=== PATIENT | female | born 1985 | race African-American/Black ===

== ENCOUNTER 2017-05-15 06:10 | Observation (INO) | payer MEDICAID ==
[~2017-05-15] VITALS: Ht 152.4 cm; Wt 109.8 kg
[2017-05-15] MEDS ORDERED: PRENATAL COMPLE1 TAB PO (07:10)
[2017-05-15] MEDS ORDERED: GLYBURIDE5 M1 PO (07:10)
[2017-05-15 09:22] VITALS: BP 131/76
[2017-05-15 10:19] VITALS: BMI 47.3
[2017-05-15 19:34] VITALS: BP 132/66
[2017-05-15 20:15] VITALS: BP 132/66; Ht 152.4 cm; Wt 109.8 kg
[2017-05-16 07:38] VITALS: BP 132/75
== END 2017-05-16 18:25 | disposition home or self-care (01) ==
LOC: D.LDO 06:10 → OBSVTIME 18:32 → D.LD 18:32 → D.LDO 19:02 → D.LD 05-16 18:25
DX: O24.424 Gestational diabetes mellitus in childbirth, insulin controlled (principal); Z37.0 Single live birth; O10.912 Unspecified pre-existing hypertension complicating pregnancy, second trimester; O34.12 Maternal care for benign tumor of corpus uteri, second trimester; D25.9 Leiomyoma of uterus, unspecified

== ENCOUNTER → 2017-06-27 12:34 | Outpatient (CLI) | payer MEDICAID ==
[~2017-06-27 12:34] MED LIST: GLYBURIDE5 M1 PO; PRENATAL COMPLE1 TAB PO
== END | disposition home or self-care (01) ==
LOC: D.LDO 12:34
DX: O26.892 Other specified pregnancy related conditions, second trimester (principal); Z3A.24 24 weeks gestation of pregnancy; K59.00 Constipation, unspecified

== ENCOUNTER 2019-07-22 05:12 | Day surgery (SDC) | payer BC ==
[~2019-07-22] VITALS: Ht 149.9 cm; Wt 110.2 kg
--- NOTE | ~2019-07-22 | OP ---
PATIENT NAME: PENNY NGUYEN MEDICAL RECORD: [id number] :83 LOCATION:D.[facility] ADMISSION DATE: SURGEON: VINCE NIETO MD DATE OF OPERATION: 07/22/2019 PREOPERATIVE DIAGNOSES: 1. Morbid obesity. 2. Undesired fertility, request intrauterine device placement. POSTOPERATIVE DIAGNOSES: 1. Morbid obesity. 2. Undesired fertility, request intrauterine device placement. PROCEDURES: 1. Exam under anesthesia. 2. Dilation of cervix. 3. IUD placement. SURGEON: Vince Nieto MD GUTTER HANGER: Rosalio Meléndez. ANESTHESIA: General. FINDINGS: The patient is morbidly obese with a large retractor with sidewalls required to visualize the cervix at the apex. Cervix appears attenuated. Cervix is slightly stenotic and dilated to accommodate placement of IUD. Uterus sounded to approximately 7-8 cm prior to placement. SPECIMENS REMOVED: Not applicable. ESTIMATED BLOOD LOSS: Minimal. FLUIDS: 500 cc lactated Ringer's. URINE OUTPUT: Quantity sufficient void. COMPLICATIONS: None. INDICATIONS: The patient is a 33-year-old female requesting IUD for control. The patient is status post section with her first delivery. The patient is morbidly obese and would be at increased risk due to advancing maternal age and body habitus with . Due to body habitus and limitations in clinic, unable to visualize the cervix and placed IUD. DESCRIPTION OF PROCEDURE: After informed consent was assured, the patient was taken to the operating room, anesthetic was obtained. The patient was placed in the [facility] and prepped and draped. The legs were positioned and the standard operative speculum introduced. Due to the soft tissue obstruction, this was abandoned and a weighted speculum along with Robles retractor was utilized. Again, the cervix was poorly visualized. Using an insulated large Graves speculum with the sidewall retractors, the cervix was eventually visualized, grasped with a single-toothed tenaculum, placed on gentle tension and dilated to accommodate a uterine sound. The sound was passed gently to the fundus approximately 7.5 to 8 cm. Mirena IUD was now inspected. The device was OPERATIVE REPORT [id number] PENNY NGUYEN loaded into its applicator and placed. Strings are cut to approximately 2.5 to 3 cm. The instrument counts correct at the close of this procedure. The patient was awakened and went to the recovery area in stable condition. TRANSINT:[id number] Voice Confirmation ID: [id number] DOCUMENT ID: [id number] VINCE NIETO MD CC: [id number] DICTATION DATE: 08/04/19718 PHARMACEUTICAL REPRESENTATIVE: 08/04/1942 [facility] 07/22/[address] [facility] [address] [id number]
[~2019-07-22 05:12] MED LIST changes: +GLUCOPHAGE500 MG PO; +HYDROCHLOROTH12.5 M1; +PROCARDIA XL60 MG PO
[2019-07-22 05:38] LABS: HEMATOCRIT 38.5 % (36.0-48.0); HEMOGLOBIN 12.4 g/dL (12-16); MCH 27.8 pg (26.0-34.0); MCHC 32.2 g/dL (31.0-37.0); MCV 86.3 fL (80.0-100.0); MEAN PLATELET VOLUME 10.1 fL (7.4-10.4); RBC 4.46 10x6/uL (4.00-5.40); RDW 12.8 % (11.5-14.5); WBC 6.4 10x3/uL (4.8-10.8)
[2019-07-22 05:54] LABS: HCG SERUM NEGATIVE (NEGATIVE)
[2019-07-22 06:01] LABS: UDS - AMPHET NEGATIVE QUAL (NEGATIVE); UDS - BARB NEGATIVE QUAL (NEGATIVE); UDS - BENZO NEGATIVE QUAL (NEGATIVE); UDS - COCAINE NEGATIVE QUAL (NEGATIVE); UDS - OPIATE NEGATIVE QUAL (NEGATIVE); UDS - PCP NEGATIVE QUAL (NEGATIVE); UDS - THC NEGATIVE QUAL (NEGATIVE)
[2019-07-22 06:34] LABS: ANION GAP 12.7 mmol/L (8-16); CALCIUM 8.8 mg/dL (8.5-10.1); CARBON DIOXIDE 25.6 mmol/L (21.0-32.0); POTASSIUM - SERUM 4.3 mmol/L (3.5-5.1)
[2019-07-22 06:41] VITALS: BP 145/80; Ht 149.9 cm; Wt 110.2 kg
--- NOTE | 2019-07-22 09:26 | NUR ---
0915 TAKEN OUT VIA W/C AND ASSISTED TO CAR WITH SISTER. ADVISED TO CALL OR COME BACK IF ANY PROBLEMS. VOICED UNDERSTANDING.
== END 2019-07-22 09:15 | disposition home or self-care (01) ==
LOC: D.OPS 05:12 → D.PAN 07:30 → D.OPS 09:15
PROVIDERS: Anesthesiology; ATTEND Obstetrics & Gynecology
DX: E66.01 Morbid (severe) obesity due to excess calories (principal); E11.9 Type 2 diabetes mellitus without complications; E78.5 Hyperlipidemia, unspecified; I10 Essential (primary) hypertension; Z79.84 Long term (current) use of oral hypoglycemic drugs; Z30.9 Encounter for contraceptive management, unspecified